=== PATIENT | female | born 1985 | race Caucasian/White ===

== ENCOUNTER 2019-01-31 14:51 | Emergency (ER) | payer BC ==
--- OUTSIDE RECORDS SUMMARY | 2019-01-31 14:53 | XMS REPORT ---
:1985 Author Organization [employer] Care Team Providers Name Role Phone NATALY MORELAND Provider Role Unavailable Allergies No Known Allergies Problems Problem Type Condition Code Onset Dates Condition Status Problem Attention deficit disorder (ADD) in F98.8 Active adult Problem Surveillance for control, oral Z30.41 Active contraceptives Medications No Known Medications Results No Known Results Summary Purpose [employer] Submission
--- OUTSIDE RECORDS SUMMARY | 2019-01-31 14:53 | XMS REPORT | Continuity of Care Document ---
:1985 Author Organization Interface Problems Problem Status Onset Classification Date Comments Source Date Reported Generalized Active Problem 11/30/2018 2.16.840. anxiety disorder 1.872335. 4.391.11. 28078 Seasonal allergic Active Problem 11/30/2018 2.16.840. rhinitis due to 1.088716. other allergic 4.391.11. trigger 84673 History of anemia Active Problem 11/30/2018 2.16.840. 1.351232. 4.391.11. 99637 Surveillance for Active Problem 11/30/2018 2.16.840. control, 1.682160. oral 4.391.11. contraceptives 49998 Attention deficit Active Problem 11/30/2018 2.16.840. disorder in adult 1.063331. 4.391.11. 49061 , Active Diagnosis 11/28/2018 2.16.840. unspecified 1.584755. gestational age 4.391.11. 18450 Well adult exam Active Diagnosis 09/05/2018 2.16.840. 1.171936. 4.391.11. 26141 URI, acute Active Diagnosis 09/04/2018 2.16.840. 1.367141. 4.391.11. 60192 Other fatigue Active Diagnosis 09/04/2018 2.16.840. 1.578874. 4.391.11. 37067 Family history of Active Diagnosis 09/04/2018 2.16.840. thyroid disease 1.017801. 4.391.11. 56525 Palpitation Active Diagnosis 10/15/2018 2.16.840. 1.142862. 4.391.11. 24720 Medications Medication Details Route Status Patient Ordering Order Source Instructions Provider Date Effexor XR 1 capsule Orally Active 37.5 MG Orally MERLY 2.16.840 with food Once a day 019 .1.36724 3.4.391. 11.00562 Sertraline 1 tablet PO Active 50 MG PO Once MERLY 2.16.840 HCl a day 019 .1.93440 3.4.391. 11.88923 Albuterol 2 puffs Inhalation Active 108 (90 Base) MERLY 2.16.840 Sulfate HFA MCG/ACT 018 .1.69927 Inhalation q6H 3.4.391. PRN shortness 11.39917 of breath Medrol (Manuel) as directed Orally Active 4 MG Orally MERLY 2.16.840 018 .1.31347 3.4.391. 11.03118 Albuterol 2 puffs Inhalation Active 108 (90 Base) MERLY 2.16.840 Sulfate HFA MCG/ACT .1.92296 Inhalation q6H 3.4.391. PRN shortness 11.55001 of breath Tilia Fe 1 tablet PO Active 10-27/-/ MERLY 2.16.840 MG-MCG PO Once .1.78209 a day 3.4.391. 11.88943 Sertraline 1 tablet PO Active 50 PO Once a MERLY 2.16.840 HCl day .1.78548 3.4.391. 11.64655 Amphetamine-D 1 tablet PO Active 10 mg PO Twice MERLY 2.16.840 extroamphetam a day .1.19706 ine 3.4.391. 11.38269 Vitamin B-12 1 tablet PO Active 1000 MCG PO MERLY 2.16.840 Once a day .1.53347 3.4.391. 11.14232 Vitamin D 1 tablet PO Active 1000 UNIT PO MERLY 2.16.840 Once a day .1.40765 3.4.391. 11.52401 Multi Vitamin 1 tablet PO Active - PO Once a MERLY 2.16.840 day .1.17806 3.4.391. 11.68087 Clonazepam 1 tablet on PO Active 0.25 MG PO qHS MERLY 2.16.840 the tongue .1.39183 and allow 3.4.391. to dissolve 11.14531 Adderall 1 tablet PO Active 10 mg PO BID MERLY 2.16.840 .1.29519 3.4.391. 11.89906 ZyrTEC 1 tablet Orally Active 5 MG Orally MERLY 2.16.840 Once a day .1.79626 3.4.391. 11.90359 Albuterol 2 puffs as Inhalation Active 108 (90 Base) MERYL 2.16.840 Sulfate HFA needed MCG/ACT .1.72960 Inhalation 3.4.391. every 6 hrs 11.72805 Multi Vitamin 1 tablet Orally Active - Orally Once MERLY 2.16.840 a day .1. 3.4.391. 11.45023 Vyvanse 1 capsule Orally Active 40 MG Orally MERLY 2.16.840 in the Once a day .1.22755 morning 3.4.391. 11.03468 Allergies, Adverse Reactions, Alerts Substance Category Reaction Severity Reaction Status Date Comments Source type Reported Morphine Adverse SOB, Adverse Active 11/26/2018 2.16.84 Sulfate Reaction Throat Reaction 0.1.113 closes 883.4.3 91.11.2 6004 Immunizations Immunization Date Given Site Status Last Updated Comments Source Results Order Results Value Reference Date Interpretation Comments Source Name Range Vital Signs Vital Sign Value Date Comments Source Diastolic (mm Hg) 76 11/26/2018 2.16.840.1.80448 3.4.391.11.37227 Systolic (mm Hg) 110 11/26/2018 2.16.840.1.37443 3.4.391.11.85794 Temperature Oral (F) 97.9 F 11/26/2018 2.16.840.1.67922 3.4.391.11.18076 Weight 140 11/26/2018 2.16.840.1.89024 3.4.391.11.59813 Height 64 11/26/2018 2.16.840.1.91334 3.4.391.11.47924 Diastolic (mm Hg) 78 10/14/2018 2.16.840.1.68746 3.4.391.11.69795 Systolic (mm Hg) 120 10/14/2018 2.16.840.1.91320 3.4.391.11.40773 Temperature Oral (F) 98.0 F 10/14/2018 2.16.840.1.95560 3.4.391.11.24750 Weight 139 10/14/2018 2.16.840.1.82052 3.4.391.11.35773 Height 64 10/14/2018 2.16.840.1.39843 3.4.391.11.47222 Diastolic (mm Hg) 76 09/04/2018 2.16.840.1.59028 3.4.391.11.84690 Systolic (mm Hg) 120 09/04/2018 2.16.840.1.67610 3.4.391.11.96565 Temperature Oral (F) 98.4 F 09/04/2018 2.16.840.1.12214 3.4.391.11.49571 Weight 130 09/04/2018 2.16.840.1.68902 3.4.391.11.45669 Height 64 09/04/2018 2.16.840.1.60222 3.4.391.11.04649 Diastolic (mm Hg) 80 08/22/2018 2.16.840.1.16667 3.4.391.11.22789 Systolic (mm Hg) 126 08/22/2018 2.16.840.1.61562 3.4.391.11.03385 Temperature Oral (F) 98.3 F 08/22/2018 2.16.840.1.81118 3.4.391.11.01130 Weight 132 08/22/2018 2.16.840.1.44348 3.4.391.11.89369 Height 64 08/22/2018 2.16.840.1.10167 3.4.391.11.21744 Diastolic (mm Hg) 72 06/18/2018 2.16.840.1.70784 3.4.391.11.20373 Systolic (mm Hg) 114 06/18/2018 2.16.840.1.88928 3.4.391.11.27940 Temperature Oral (F) 98.4 F 06/18/2018 2.16.840.1.25650 3.4.391.11.40991 Weight 131 06/18/2018 2.16.840.1.00320 3.4.391.11.03600 Height 64 06/18/2018 2.16.840.1.70551 3.4.391.11.11117 Diastolic (mm Hg) 72 05/03/2018 2.16.840.1.53532 3.4.391.11.50941 Systolic (mm Hg) 114 05/03/2018 2.16.840.1.44600 3.4.391.11.69318 Temperature Oral (F) 99.3 F 05/03/2018 2.16.840.1.45040 3.4.391.11.57175 Weight 132 05/03/2018 2.16.840.1.55243 3.4.391.11.08191 Height 64 05/03/2018 2.16.840.1.10656 3.4.391.11.73760 Encounters Location Location Encounter Encounter Reason Attending ADM DC Status Source Details Type Number For Provider Date Date Visit Procedures Procedure Code Date Perfomer Comments Source
--- OUTSIDE RECORDS SUMMARY | 2019-01-31 14:53 | XMS REPORT ---
:1985 Author Organization [employer] Care Team Providers Name Role Phone NATALY MORELAND Provider Role Unavailable Allergies, Adverse Reactions, Alerts Substance Reaction Event Type Morphine Sulfate SOB, Throat closes Drug Allergy Problems Problem Type Condition Code Onset Dates Condition Status Problem Attention deficit disorder (ADD) in F98.8 Active adult Problem Surveillance for control, oral Z30.41 Active contraceptives Assessment Other fatigue R53.83 Active Assessment Family history of thyroid disease Z83.49 Active Assessment Attention deficit disorder (ADD) in F98.8 Active adult Assessment Surveillance for control, oral Z30.41 Active contraceptives Medications Medication Code Code Instructions Start End Status Dosage System Date Date Medrol (Manuel) NDC 0 4 MG Orally May 03, Active as directed 2018 Adderall [facility] 02609560713 10 mg PO BID Active 1 tablet Multi Vitamin [facility] [address]-91 - PO Once a day Active 1 tablet Vitamin D [facility] 69784691224 1000 UNIT PO Active 1 tablet Once a day Vyvanse [facility] 27425531627 40 MG Orally Active 1 capsule Once a day in the morning Vitamin B-12 [facility] [address]-48 1000 MCG PO Active 1 tablet Once a day Tilia Fe [facility] 57910988199 10-27/-/35 Active 1 tablet MG-MCG PO Once a day Clonazepam [facility] 44775212280 0.25 MG PO qHS Active 1 tablet on the tongue and allow to dissolve Vital Signs Date/Time: Jun 18, 2018 Blood Pressure Diastolic 72 mm Hg Blood Pressure Systolic 114 mm Hg Temperature 98.4 F BMI 22.48 Index Weight 131 lbs Height 64 in Results No Known Results Summary Purpose [employer] Submission
--- OUTSIDE RECORDS SUMMARY | 2019-01-31 14:53 | XMS REPORT ---
:1985 Author Organization [employer] Care Team Providers Name Role Phone NATALY MORELAND Provider Role Unavailable Allergies No Known Allergies Problems Problem Type Condition Code Onset Dates Condition Status Problem Generalized anxiety disorder F41.1 Active Problem Seasonal allergic rhinitis due to J30.89 Active other allergic trigger Problem History of anemia Z86.2 Active Problem Surveillance for control, oral Z30.41 Active contraceptives Problem Attention deficit disorder (ADD) in F98.8 Active adult Medications No Known Medications Results No Known Results Summary Purpose [employer] Submission
--- OUTSIDE RECORDS SUMMARY | 2019-01-31 14:53 | XMS REPORT ---
:1985 Author Organization [employer] Care Team Providers Name Role Phone NATALY MORELAND Provider Role Unavailable Allergies, Adverse Reactions, Alerts Substance Reaction Event Type Morphine Sulfate SOB, Throat closes Drug Allergy Problems Problem Type Condition Code Onset Dates Condition Status Assessment History of anemia Z86.2 Active Problem Generalized anxiety disorder F41.1 Active Problem Seasonal allergic rhinitis due to J30.89 Active other allergic trigger Problem History of anemia Z86.2 Active Assessment , unspecified gestational Z34.90 Active age Problem Surveillance for control, oral Z30.41 Active contraceptives Problem Attention deficit disorder (ADD) in F98.8 Active adult Medications Medication Code Code Instructions Start End Status Dosage System Date Date Albuterol [facility] 33840697434 108 (90 Base) Active 2 puffs Sulfate HFA MCG/ACT Inhalation q6H PRN shortness of breath Tilia Fe [facility] 53137758608 10-27/-/ Active 1 tablet MG-MCG PO Once a day Sertraline HCl [facility] 11806100403 50 PO Once a Active 1 tablet day Effexor XR [facility] 36055491133 37.5 MG Orally Oct 16, Active 1 capsule Once a day 2019 with food Amphetamine-De [facility] [address]-74 10 mg PO Twice Active 1 tablet xtroamphetamin a day e Vitamin B-12 [facility] [address]-19 1000 MCG PO Active 1 tablet Once a day Vitamin D [facility] 23892470850 1000 UNIT PO Active 1 tablet Once a day Multi Vitamin [facility] [address]-32 - PO Once a day Active 1 tablet Clonazepam [facility] 54052139359 0.25 MG PO qHS Active 1 tablet on the tongue and allow to dissolve Vital Signs Date/Time: Nov 26, 2018 Blood Pressure Diastolic 76 mm Hg Blood Pressure Systolic 110 mm Hg Temperature 97.9 F BMI 24.03 Index Weight 140 lbs Height 64 in Results Name Result Date Reference Range Unit Abnormality Flag Test, Urine ---- Test, + [id number] Urine CBC (INCLUDES DIFF/PLT) ----MCHC 34.2 20181126 32.0-36.0 g/dL N ----MCH 32.4 18280924 27.0-33.0 pg N ----PLATELET COUNT 255 20181126 140-400 Thousand/uL N ----RDW 12.2 56664801 11.0-15.0 % N ----BASOPHILS 0.4 92290499 % N ----ABSOLUTE NEUTROPHILS 6528 [id number] 5369-5429 cells/uL N ----ABSOLUTE LYMPHOCYTES 2347 13597584 850-3900 cells/uL N ----MPV 11.3 02992087 7.5-12.5 fL N ----ABSOLUTE BASOPHILS 39 69158362 0-200 cells/uL N ----HEMATOCRIT 32.2 14451693 35.0-45.0 % L ----NEUTROPHILS 67.3 52865627 % N ----MCV 94.7 80068959 80.0-100.0 fL N ----RED BLOOD CELL COUNT 3.40 84103044 3.80-5.10 Million/uL L ----ABSOLUTE MONOCYTES 660 20181126 200-950 cells/uL N ----ABSOLUTE EOSINOPHILS 126 06136305 15-500 cells/uL N ----HEMOGLOBIN 11.0 79979771 11.7-15.5 g/dL L ----EOSINOPHILS 1.3 07854011 % N ----WHITE BLOOD CELL 9.7 93653724 3.8-10.8 Thousand/uL N COUNT ----LYMPHOCYTES 24.2 06670653 % N ----MONOCYTES 6.8 80120304 % N Summary Purpose eClinicalWorks Submission
--- OUTSIDE RECORDS SUMMARY | 2019-01-31 14:54 | XMS REPORT ---
:1985 Author Organization [employer]Works Care Team Providers Name Role Phone NATALY MORELAND Provider Role Unavailable Allergies No Known Allergies Problems Problem Type Condition Code Onset Dates Condition Status Problem Attention deficit disorder (ADD) in F98.8 Active adult Problem Surveillance for control, oral Z30.41 Active contraceptives Assessment Surveillance for control, oral Z30.41 Active contraceptives Medications Medication Code System Code Instructions Start Date End Date Status Dosage Tilia Fe [facility] 63688608735 10-27/11-06/ Active 1 tablet MG-MCG PO Once a day Results No Known Results Summary Purpose [employer]ClinicalWorks Submission
--- OUTSIDE RECORDS SUMMARY | 2019-01-31 14:54 | XMS REPORT ---
:1985 [facility] Providers Name Role Phone MERLYNATALY Provider Role Unavailable Allergies, Adverse Reactions, Alerts Substance Reaction Event Type Morphine Sulfate SOB, Throat closes Drug Allergy Problems Problem Type Condition Code Onset Dates Condition Status Problem Surveillance for control, oral Z30.41 Active contraceptives Problem Attention deficit disorder (ADD) in F98.8 Active adult Problem Seasonal allergic rhinitis due to J30.89 Active other allergic trigger Assessment Attention deficit disorder (ADD) in F98.8 Active adult Medications Medication Code Code Instructions Start End Status Dosage System Date Date Vitamin D [facility] 30416098896 1000 UNIT PO Active 1 tablet Once a day Vitamin B-12 [facility] [address]-96 1000 MCG PO Active 1 tablet Once a day Multi Vitamin [facility] [address]-05 - PO Once a day Active 1 tablet Tilia Fe [facility] 12542916244 -/35 Active 1 tablet MG-MCG PO Once a day Adderall [facility] 28320937101 10 mg PO BID Active 1 tablet Clonazepam [facility] 39530108628 0.25 MG PO qHS Active 1 tablet on the tongue and allow to dissolve Vital Signs Date/Time: Aug 22, 2018 Blood Pressure Diastolic 80 mm Hg Blood Pressure Systolic 126 mm Hg Temperature 98.3 F BMI 22.66 Index Weight 132 lbs Height 64 in Results Name Result Date Reference Range Unit Abnormality Flag DRUG SCREEN ----Propoxyphene Screen, Urine - [id number] ----Methadone Screen, Urine - 20180822 ----Phencyclidine Screen, Urine - 20180822 ----Opiates Screen, Urine - 20180822 ----Cocaine(Metab.)Screen, - 20180822 Urine ----MDMA - 20180822 ----MAMP - 20180822 ----TCA - 20180822 ----OXY - 20180822 ----Amphetamines Screen, Urine + [id number] ----Barbiturates Screen, Urine - 20180822 ----Benzodiazepines - 20180822 Screen,Urine ----Cannabinoids Screen, Urine - 20180822 Summary Purpose eClinicalWorks Submission
--- OUTSIDE RECORDS SUMMARY | 2019-01-31 14:54 | XMS REPORT ---
:1985 Author Organization eClinicalWorks Care Team Providers Name Role Phone DEJAH SIMON Provider Role Unavailable Allergies No Known Allergies Problems Problem Type Condition Code Onset Dates Condition Status Problem Surveillance for control, oral Z30.41 Active contraceptives Problem Attention deficit disorder (ADD) in F98.8 Active adult Problem Seasonal allergic rhinitis due to J30.89 Active other allergic trigger Medications No Known Medications Results No Known Results Summary Purpose eClinicalWorks Submission
--- OUTSIDE RECORDS SUMMARY | 2019-01-31 14:54 | XMS REPORT ---
[...] for control, oral Z30.41 Active contraceptives Assessment URI, acute J06.9 Active Assessment Attention deficit disorder (ADD) in F98.8 Active adult Medications Medication Code Code Instructions Start End Status Dosage System Date Date Vitamin B-12 [facility] [address]-35 1000 MCG Orally Active not defined Multi Vitamin [facility] 48416880547 - Orally Once a Active 1 tablet day Adderall [facility] 45908944171 10 mg PO BID Active 1 tablet Clonazepam [facility] 39144567072 0.25 MG Orally Active 1 tablet on Once a day the tongue and allow to dissolve before bedtime Vyvanse [facility] 88895063784 40 MG Orally Active 1 capsule Once a day in the morning Medrol (Manuel) NDC 0 4 MG Orally May 03, Active as directed 2018 Vitamin D [facility] 89774219496 1000 UNIT Active 1 tablet Orally Once a day Tilia Fe [facility] 40597536513 -/ Active 1 tablet MG-MCG Orally Once a day Vital Signs Date/Time: May 03, 2018 Blood Pressure Diastolic 72 mm Hg Blood Pressure Systolic 114 mm Hg Temperature 99.3 F BMI 22.66 Index Weight 132 lbs Height 64 in Results No Known Results Summary Purpose eClinicalWorks Submission
--- OUTSIDE RECORDS SUMMARY | 2019-01-31 14:54 | XMS REPORT ---
:1985 Author Organization eClinicalWorks Care Team Providers Name Role Phone MERLYSTARGISELLEDRAGAN Provider Role Unavailable Allergies, Adverse Reactions, Alerts Substance Reaction Event Type Morphine Sulfate SOB, Throat closes Drug Allergy Problems Problem Type Condition Code Onset Dates Condition Status Problem Surveillance for control, oral Z30.41 Active contraceptives Problem Attention deficit disorder (ADD) in F98.8 Active adult Problem Seasonal allergic rhinitis due to J30.89 Active other allergic trigger Assessment Seasonal allergic rhinitis due to J30.89 Active other allergic trigger Assessment Well adult exam Z00.00 Active Medications Medication Code Code Instructions Start End Status Dosage System Date Date Albuterol [facility] 4853621477 108 (90 Base) Sep 04, Active 2 puffs Sulfate HFA MCG/ACT 2018 Inhalation q6H PRN shortness of breath ZyrTEC NDC 0 5 MG Orally Active 1 tablet Once a day Clonazepam [place] 75441857935 0.25 MG PO qHS Active 1 tablet on the tongue and allow to dissolve Vitamin D [facility] 64143538930 1000 UNIT PO Active 1 tablet Once a day Multi Vitamin [facility] [address]-68 - PO Once a day Active 1 tablet Albuterol [facility] [address]-38 108 (90 Base) Active 2 puffs as Sulfate HFA MCG/ACT needed Inhalation every 6 hrs Adderall [facility] 77853417019 10 mg PO BID Active 1 tablet Tilia Fe [facility] 08783896784 -20/-30/-35 Active 1 tablet MG-MCG PO Once [place] [address]-91 1000 MCG PO Active 1 tablet Once a day Vital Signs Date/Time: Sep 04, 2018 Blood Pressure Diastolic 76 mm Hg Blood Pressure Systolic 120 mm Hg Temperature 98.4 F BMI 22.31 Index Weight 130 lbs Height 64 in Results No Known Results Summary Purpose eClinicalWorks Submission
--- OUTSIDE RECORDS SUMMARY | 2019-01-31 14:54 | XMS REPORT ---
:1985 Author Organization eClinicalWorks Care Team Providers Name Role Phone NATALY MORELAND Provider Role Unavailable Allergies, Adverse Reactions, Alerts Substance Reaction Event Type Morphine Sulfate SOB, Throat closes Drug Allergy Problems Problem Type Condition Code Onset Dates Condition Status Assessment Generalized anxiety disorder F41.1 Active Problem Seasonal allergic rhinitis due to J30.89 Active other allergic trigger Problem Surveillance for control, oral Z30.41 Active contraceptives Problem Generalized anxiety disorder F41.1 Active Assessment Palpitation R00.2 Active Assessment Attention deficit disorder (ADD) in F98.8 Active adult Problem Attention deficit disorder (ADD) in F98.8 Active adult Medications Medication Code Code Instructions Start End Status Dosage System Date Date Vitamin D [facility] 57821991748 1000 UNIT PO Active 1 tablet Once a day ZyrTEC NDC 0 5 MG Orally Active 1 tablet Once a day Albuterol [facility] 62961577218 108 (90 Base) Active 2 puffs Sulfate HFA MCG/ACT Inhalation q6H PRN shortness of [place] [address]-08 1000 MCG PO Active 1 tablet Once a day Tilia Fe ND 60020772829 10-27/30/35 Active 1 tablet MG-MCG [place] [address]-05 - PO Once a day Active 1 tablet Clonazepam ND 06525099135 0.25 MG PO qHS Active 1 tablet on the tongue and allow to dissolve Sertraline HCl ND 77393328113 50 MG PO Once a Oct 14, Active 1 tablet 2018 Adderall [place] 23366181446 10 mg PO BID Active 1 tablet Vital Signs Date/Time: Oct 14, 2018 Blood Pressure Diastolic 78 mm Hg Blood Pressure Systolic 120 mm Hg Temperature 98.0 F BMI 23.86 Index Weight 139 lbs Height 64 in Results No Known Results Summary Purpose eClinicalWorks Submission
--- OUTSIDE RECORDS SUMMARY | 2019-01-31 14:54 | XMS REPORT ---
:1985 Author Organization eClinicalWorks Care Team Providers Name Role Phone NATALY MORELAND Provider Role Unavailable Allergies No Known Allergies Problems Problem Type Condition Code Onset Dates Condition Status Problem Seasonal allergic rhinitis due to J30.89 Active other allergic trigger Problem Surveillance for control, oral Z30.41 Active contraceptives Problem Generalized anxiety disorder F41.1 Active Assessment Generalized anxiety disorder F41.1 Active Problem Attention deficit disorder (ADD) in F98.8 Active adult Medications Medication Code Code Instructions Start End Status Dosage System Date Date Effexor XR [facility] 40059636903 37.5 MG Orally Oct 16, Active 1 capsule Once a day 2018 with food Sertraline HCl ND 00215428407 50 MG PO Once a Oct 14, Inactive 1 tablet day 2019 Adderall [facility] 22869324935 10 mg PO BID Inactive 1 tablet Results No Known Results Summary Purpose eClinicalWorks Submission
--- NOTE | 2019-01-31 16:20 | ER ---
Nurse's Notes [facility] Name: Babita Monahan Age: 33 yrs Sex: Female : 1985 Arrival Date: 01/31/2019 Time: 14:56 Bed 28 Private MD: Diagnosis: Pain in left leg Presentation: 01/31 14:59 Presenting complaint: Patient states: i have a varicose pain on my L upper leg and hj today, i felt a spot on my L leg and i feel like my L leg begins to sleep; LMP- 10/01/18; 17 weeks ; denies vaginal bleed and abd pain; denies N/V;. Transition of care: patient was not received from another setting of care. Onset of symptoms was January 31, 2019. Risk Assessment: Do you want to hurt yourself or someone else? Patient reports no desire to harm self or others. Initial Sepsis Screen: Does the patient meet any 2 criteria? No. Patient's initial sepsis screen is negative. Does the patient have a suspected source of infection? No. Patient's initial sepsis screen is negative. Care prior to arrival: None. 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 - Social history:: Smoking status: unknown. - Ebola Screening: : No symptoms or risks identified at this time. Screenin:11 Abuse screen: Denies threats or abuse. Denies injuries from another. Nutritional rv screening: No deficits noted. Tuberculosis screening: No symptoms or risk factors identified. Fall Risk None identified. Assessment: 16:09 General: Appears in no apparent distress. comfortable, Behavior is calm, cooperative. rv Pain: Complains of pain in left leg. Neuro: Level of Consciousness is awake, alert, obeys commands, Oriented to person, place, time, situation. Cardiovascular: Capillary refill < 3 seconds. Respiratory: Airway is patent. GI: No signs and/or symptoms were reported involving the gastrointestinal system. : No signs and/or symptoms were reported regarding the genitourinary system. EENT: No signs and/or symptoms were reported regarding the EENT system. Derm: Skin is intact. Musculoskeletal: No signs and/or symptoms reported regarding the musculoskeletal system. Vital Signs: 15:03 BP 107 / 72; Pulse 78; Resp 18; Temp 98.4(TE); Pulse Ox 98% on R/A; Weight 66.68 kg; hj Height 5 ft. 4 in. (162.56 cm); Pain 0/10; 15:03 Body Mass Index 25.23 (66.68 kg, 162.56 cm) hj Vitals: 15:49 Heart Tones 150s RLQ. rv ED Course: 14:56 Patient arrived in ED. rg4 15:01 Triage completed. hj 15:04 Arm band placed on left wrist. hj 15:05 Roque Paniagua RN is Primary Nurse. rv 15:15 Brent Llanes PA is PHCP. cp 15:15 Jai Galaviz MD is Attending Physician. cp 16:10 Patient has correct armband on for positive identification. Bed in low position. Call rv light in reach. Side rails up X 1. Adult w/ patient. Pulse ox on. NIBP on. 16:36 US Extremity Venous Unilateral Ltd In Process Unspecified. EDMS 16:37 No provider procedures requiring assistance completed. Patient did not have IV access rv during this emergency room visit. Administered Medications: No medications were administered Outcome: 16:19 Discharge ordered by MD. cp 16:37 Discharged to home ambulatory. rv 16:37 Condition: good 16:37 Discharge instructions given to patient, Instructed on discharge instructions, follow up and referral plans. Demonstrated understanding of instructions, follow-up care. 16:38 Patient left the ED. rv Signatures: Dispatcher [employer] EDMS Lowell Hernandez RN RN Brent Llanes PA PA cp Garcia, Rubi rg4 Roque Paniagua RN RN rv Corrections: (The following items were deleted from the chart) 15:05 15:03 Pulse 78bpm; Resp 18bpm; Pulse Ox 98% RA; Temp 98.4F Temporal; 66.68 kg; Height 5 hj ft. 4 in.; BMI: 25.2; Pain 0/10; hj
--- NOTE | 2019-01-31 16:20 | EDPHYS ---
Physician Documentation [facility] Name: Babita Monahan Age: 33 yrs Sex: Female : 1985 Arrival Date: 01/31/2019 Time: 14:56 Bed 28 Private MD: ED Physician Jai Galaviz HPI: 01/31 15:31 This 33 yrs old Female presents to ER via Ambulatory with complaints of Leg cp Pain. 15:31 The patient presents with pain, that is acute. The complaints affect the left hamstring cp and posterior aspect of left knee. Onset: The symptoms/episode began/occurred gradually. Associated signs and symptoms: Pertinent negatives calf tenderness, fever, warmth. Treatment prior to arrival includes: no previous treatment. 15:31 Patient reports she is 17 weeks . Denies vaginal bleeding or leakage of fluids. 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 - Social history:: Smoking status: unknown. - Ebola Screening: : No symptoms or risks identified at this time. ROS: 15:35 Constitutional: Negative for body aches, chills, fever, poor PO intake. cp 15:35 Eyes: Negative for injury, pain, redness, and discharge. cp 15:35 ENT: Negative for drainage from ear(s), ear pain, sore throat, difficulty swallowing, difficulty handling secretions. 15:35 Cardiovascular: Negative for chest pain, edema, palpitations. 15:35 Respiratory: Negative for cough, shortness of breath, wheezing. 15:35 Abdomen/GI: Negative for abdominal pain, vomiting, diarrhea, constipation. 15:35 MS/extremity: Positive for pain, paresthesias, of the left leg, Negative for injury or acute deformity, decreased range of motion. 15:35 Skin: Negative for rash. 15:35 All other systems are negative. Exam: 15:45 Constitutional: The patient appears in no acute distress, alert, awake, comfortable, cp well developed, well nourished. 15:45 Head/Face: Normocephalic, atraumatic. cp 15:45 Chest/axilla: Inspection: normal. 15:45 Cardiovascular: Rate: normal. 15:45 Respiratory: the patient does not display signs of respiratory distress, Respirations: normal. 15:45 Back: pain, is absent, ROM is normal. 15:45 Musculoskeletal/extremity: Extremities: grossly normal except: noted in the posterior aspect left leg: tenderness, DVT Exam: no swelling, negative Homans' sign noted on exam, no erythema, no increased warmth. 15:45 Skin: cellulitis, is not appreciated, no rash present. Vital Signs: 15:03 BP 107 / 72; Pulse 78; Resp 18; Temp 98.4(TE); Pulse Ox 98% on R/A; Weight 66.68 kg; hj Height 5 ft. 4 in. (162.56 cm); Pain 0/10; 15:03 Body Mass Index 25.23 (66.68 kg, 162.56 cm) MDM: 15:16 Patient medically screened. cp 16:18 ED course: US negative for DVT. cp 16:19 Data reviewed: vital signs, nurses notes, radiologic studies, ultrasound, and as a cp result, I will discharge patient. 16:19 Differential diagnosis: DVY, superficial thrombus, cellulitis. Counseling: I had a cp detailed discussion with the patient and/or guardian regarding: the historical points, exam findings, and any diagnostic results supporting the discharge/admit diagnosis, radiology results, to return to the emergency department if symptoms worsen or persist or if there are any questions or concerns that arise at home. 01/31 15:21 Order name: US Extremity Venous Unilateral Ltd cp 01/31 15:21 Order name: FHT's; Complete Time: 15:50 cp Administered Medications: No medications were administered Disposition: 17:11 Co-signature as Attending Physician, Jai Galaviz MD. ma2 Disposition: 01/31/19 16:19 Discharged to Home. Impression: Pain in left leg. - Condition is Stable. - Discharge Instructions: Second Trimester of , [id number]. - Medication Reconciliation Form, Thank You Letter, Antibiotic Education, Prescription Opioid Use form. - Follow up: Private Physician; When: 2 - 3 days; Reason: Worsening of condition. - Problem is new. - Symptoms are unchanged. Signatures: Dispatcher [employer] EDLowell Blanchard RN RN hj Brent Llanes PA PA cp Jai Galaviz MD MD ma2 Roque Paniagua RN RN rv Corrections: (The following items were deleted from the chart) 16:38 16:19 01/31/2019 16:19 Discharged to Home. Impression: Pain in left leg. Condition is rv Stable. Forms are Medication Reconciliation Form, Thank You Letter, Antibiotic Education, Prescription Opioid Use. Follow up: Private Physician; When: 2 - 3 days; Reason: Worsening of condition. Problem is new. Symptoms are unchanged. cp
--- NOTE | 2019-01-31 16:57 | RAD REPORT ---
EXAM DESCRIPTION: USExtremity Venous Uni Ltd4 4:37 pm CLINICAL HISTORY: left leg pain COMPARISON: None. FINDINGS: Left common femoral, superficial femoral, popliteal and posterior tibial veins are compre ssible and demonstrate augmentation. Doppler demonstrates good flow. IMPRESSION: No evidence of deep venous thrombosis involving the left lower extremity.
== END 2019-01-31 16:38 | disposition home or self-care (01) ==
LOC: ER 14:51
DX: K59.00 Constipation, unspecified (principal); M79.605 Pain in left leg; Z88.6 Allergy status to analgesic agent
CPT/HCPCS: 93971; 99283